=== PATIENT | female | born 1990 | race Native Hawaiian/Other Pacific Islander ===

== ENCOUNTER 2020-11-25 10:46 | Inpatient (IN) | payer MEDICAID, OTHER ==
[2020-11-25] MEDS ORDERED: LACTATED RINGERS 1,000 ML ONE (11:43)
--- NOTE | 2020-11-25 12:10 | History and Physical Report ---
History of Present Illness Date of examination: 11/25/20 Chief complaint: active labor Past History Past Surgical History: no surgical history - Obstetrical History Expected Date of Delivery: 12/06/20 Actual Gestation: 38 Week(s) 3 Day(s) : 4 Para: 2 Medications and Allergies Allergies Allergy/AdvReac Type Severity Reaction Status Date / Time No Known Allergies Allergy Verified 11/25/20 22:13 Home Medications Medication Instructions Recorded Confirmed Last Taken Type Ferrous Sulfate [Iron Supplement] 325 mg PO BID #60 tablet 05/06/14 11/25/20 Unknown Rx Ibuprofen [Motrin 600 MG tab] 600 mg PO Q6H #30 tablet 05/06/14 11/25/20 Unknown Rx oxyCODONE /ACETAMINOPHEN [Percocet 2 tab PO Q4H PRN #30 tablet 05/06/14 11/25/20 Unknown Rx 5/325 mg] - Vital Signs Vital signs: Vital Signs Pulse Pulse Ox 67 100 11/25/20 11:29 11/25/20 11:29 Temp Pulse Resp BP Pulse Ox 65 106/66 99 11/25/20 12:04 11/25/20 11:48 11/25/20 12:04 - Physical Exam Breasts: Positive: deferred Cardiovascular: Regular rate Abdomen: Positive: normal appearance, soft Genitourinary (Female): Positive: normal external genitalia Uterus: Positive: enlarged (FH 38cm) Deep Tendon Reflex Grade: Normal +2 - Obstetrical FHR: category 1 Results Result Diagrams: 11/25/20 14:49 All other labs normal. Assessment and Plan admission CFM pain meds prn gbs neg anticipate Renetta Swanson MD
[2020-11-25 12:40] LABS: Hematocrit 31.8 % (30.3-42.9); Hemoglobin 10.2 gm/dl (10.1-14.3); Mean Corpuscular HGB Conc 32 % (30-34); Mean Corpuscular Volume 72 fl (79-97); Platelet Count 289 K/mm3 (140-440); Red Blood Count 4.44 M/mm3 (3.65-5.03); Red Cell Distribution Width 18.8 % (13.2-15.2)
[2020-11-25] MEDS ORDERED: OXYTOCIN 10 UNIT/1 ML INJ IM PRN (12:42)
[2020-11-25] MEDS ORDERED: ePHEDrine SULFATE 50 MG/1 ML INJ IV PRN (12:42)
[2020-11-25] MEDS ORDERED: METHYLERGONOVINE MALEATE 0.2 MG/ML VIAL IM PRN (12:42)
[2020-11-25] MEDS ORDERED: fentaNYL 100 MCG/2 ML INJ IV PRN (12:42)
[2020-11-25] MEDS ORDERED: TERBUTALINE 1 MG/1 ML INJ SUB-Q PRN (12:42)
[2020-11-25] MEDS ORDERED: LOPERAMIDE 2 MG CAP PO PRN (12:42)
[2020-11-25] MEDS ORDERED: MINERAL OIL 30 ML ORAL LIQD PO PRN (12:42)
[2020-11-25] MEDS ORDERED: LIDOCAINE (2%) 20 MG/1 ML VIAL 20 ML MDV INFILTRATI ONE (12:42)
[2020-11-25] MEDS ORDERED: CARBOPROST TROMETHAMINE 250 MCG/1 ML INJ IM PRN (12:42)
[2020-11-25] MEDS ORDERED: BUTORPHANOL 2 MG/1 ML INJ IV PRN (12:42)
[2020-11-25] MEDS ORDERED: ACETAMINOPHEN 325 MG TAB PO PRN ×2 (12:42→18:24)
[2020-11-25] MEDS ORDERED: miSOPROStol 200 MCG TAB PR PRN (12:42)
[2020-11-25] MEDS ORDERED: LACTATED RINGERS 1,000 ML IV SCH (12:45)
[2020-11-25] MEDS ORDERED: OXYTOCIN DRIP 30 UNITS/500 ML BAG IV SCH ×2 (13:00)
[2020-11-25 15:14] LABS: Hematocrit 28.7 % (30.3-42.9); Mean Corpuscular HGB Conc 31 % (30-34); Mean Corpuscular Volume 71 fl (79-97); Platelet Count 285 K/mm3 (140-440); Red Blood Count 4.08 M/mm3 (3.65-5.03); Red Cell Distribution Width 18.5 % (13.2-15.2)
--- NOTE | 2020-11-25 16:38 | Progress Note ---
Subjective - Subjective Date of service: 11/25/20 Interval history: SROM clear fluid cervix 9cm/100/-1 FHT Category 1 expect Renetta Swanson MD Objective - Vital Signs Vital Signs: Vital Signs - 12hr 11/25/20 11/25/20 11/25/20 11:29 11:34 11:39 Temperature Pulse Rate 67 68 72 Respiratory Rate Blood Pressure Blood Pressure [Left] O2 Sat by Pulse 100 99 99 Oximetry O2 Sat by Pulse Oximetry [ Bilateral] 11/25/20 11/25/20 11/25/20 11:44 11:48 11:49 Temperature Pulse Rate 62 65 67 Respiratory Rate Blood Pressure 106/66 Blood Pressure [Left] O2 Sat by Pulse 99 99 Oximetry O2 Sat by Pulse Oximetry [ Bilateral] 11/25/20 11/25/20 11/25/20 11:54 11:59 12:04 Temperature Pulse Rate 58 L 72 65 Respiratory Rate Blood Pressure Blood Pressure [Left] O2 Sat by Pulse 100 100 99 Oximetry O2 Sat by Pulse Oximetry [ Bilateral] 11/25/20 11/25/20 11/25/20 12:09 12:14 12:19 Temperature 98.3 F Pulse Rate 60 60 67 Respiratory 20 Rate Blood Pressure Blood Pressure 106/66 [Left] O2 Sat by Pulse 99 99 99 Oximetry O2 Sat by Pulse Oximetry [ Bilateral] 11/25/20 11/25/20 11/25/20 12:49 13:06 13:08 Temperature Pulse Rate 65 49 L Respiratory Rate Blood Pressure 99/57 Blood Pressure [Left] O2 Sat by Pulse 100 Oximetry O2 Sat by Pulse 99 Oximetry [ Bilateral] 11/25/20 11/25/20 11/25/20 13:11 13:16 13:21 Temperature Pulse Rate 62 51 L 62 Respiratory Rate Blood Pressure Blood Pressure [Left] O2 Sat by Pulse 100 100 100 Oximetry O2 Sat by Pulse Oximetry [ Bilateral] 11/25/20 11/25/20 11/25/20 13:26 13:31 13:36 Temperature Pulse Rate 57 L 62 69 Respiratory Rate Blood Pressure Blood Pressure [Left] O2 Sat by Pulse 98 100 100 Oximetry O2 Sat by Pulse Oximetry [ Bilateral] 11/25/20 11/25/20 11/25/20 13:41 13:46 13:51 Temperature Pulse Rate 59 L 51 L 76 Respiratory Rate Blood Pressure Blood Pressure [Left] O2 Sat by Pulse 99 100 100 Oximetry O2 Sat by Pulse Oximetry [ Bilateral] 11/25/20 11/25/20 11/25/20 13:56 14:01 14:06 Temperature Pulse Rate 65 59 L 55 L Respiratory Rate Blood Pressure Blood Pressure [Left] O2 Sat by Pulse 99 99 99 Oximetry O2 Sat by Pulse Oximetry [ Bilateral] 11/25/20 11/25/20 11/25/20 14:11 14:16 14:21 Temperature Pulse Rate 80 64 68 Respiratory Rate Blood Pressure Blood Pressure [Left] O2 Sat by Pulse 100 99 100 Oximetry O2 Sat by Pulse Oximetry [ Bilateral] 11/25/20 11/25/20 11/25/20 14:26 14:31 14:36 Temperature Pulse Rate 72 67 79 Respiratory Rate Blood Pressure Blood Pressure [Left] O2 Sat by Pulse 100 99 98 Oximetry O2 Sat by Pulse Oximetry [ Bilateral] 11/25/20 11/25/20 11/25/20 14:41 14:46 14:51 Temperature Pulse Rate 58 L 76 58 L Respiratory Rate Blood Pressure Blood Pressure [Left] O2 Sat by Pulse 100 100 99 Oximetry O2 Sat by Pulse Oximetry [ Bilateral] 11/25/20 11/25/20 11/25/20 14:56 15:01 15:06 Temperature Pulse Rate 52 L 73 53 L Respiratory Rate Blood Pressure Blood Pressure [Left] O2 Sat by Pulse 100 100 100 Oximetry O2 Sat by Pulse Oximetry [ Bilateral] 11/25/20 11/25/20 11/25/20 15:11 15:15 15:20 Temperature Pulse Rate 73 61 63 Respiratory Rate Blood Pressure Blood Pressure [Left] O2 Sat by Pulse 99 99 100 Oximetry O2 Sat by Pulse Oximetry [ Bilateral] 11/25/20 11/25/20 11/25/20 15:25 15:30 15:35 Temperature Pulse Rate 66 69 69 Respiratory Rate Blood Pressure Blood Pressure [Left] O2 Sat by Pulse 99 96 99 Oximetry O2 Sat by Pulse Oximetry [ Bilateral] 11/25/20 11/25/20 15:50 16:37 Temperature 97.9 F Pulse Rate 57 L Respiratory 16 Rate Blood Pressure 105/56 Blood Pressure [Left] O2 Sat by Pulse Oximetry O2 Sat by Pulse Oximetry [ Bilateral] - Labs Labs: Abnormal Labs 11/25/20 11/25/20 12:00 14:49 Hgb 9.0 L Hct 28.7 L MCV 72 L 71 L MCH 23 L 22 L RDW 18.8 H 18.5 H Laboratory Results - last 24 hr 11/25/20 11/25/20 11/25/20 12:00 12:00 12:00 WBC 10.4 RBC 4.44 Hgb 10.2 Hct 31.8 MCV 72 L MCH 23 L MCHC 32 RDW 18.8 H Plt Count 289 Syphilis IgG Antibody Nonreactive Blood Type O POSITIVE Antibody Screen Negative 11/25/20 14:49 WBC 10.9 RBC 4.08 Hgb 9.0 L Hct 28.7 L MCV 71 L MCH 22 L MCHC 31 RDW 18.5 H Plt Count 285 Syphilis IgG Antibody Blood Type Antibody Screen
--- NOTE | 2020-11-25 17:32 | Procedure Note ---
OB Delivery Note - Delivery Date of Delivery: 11/25/20 Surgeon: ROCK MONTALVO Estimated blood loss: 200cc - Vaginal Delivery position: OP Intrapartum events: none Delivery induction: none Delivery augmentation: rupture of membranes Delivery monitor: none Route of delivery: Delivery placenta: spontaneous Delivery cord: 3 umbilical vessels Episiotomy: none Delivery laceration: 1st degree Delivery repair: vicryl Anesthesia: none Delivery comments: Patient pushed to deliver a viable male over an intact perineum with weight 3111gma and 9/9. Position direct OP, no nuchal cord. Spontaneous cry at delivery. Delivery of the anterior shoulder atraumatic, remainder of delivery uncomplicated. Cord clamped cut and baby handed to waiting [facility] team. Spontaneous delivery of an intact placenta with three-vessel cord. Inspection of the perineum cervix and vagina revealeda first degree perineal laceration which was repaired with vicryl in the usual fashion. Firm fundus, EBL 200ml. All sponge needle and instrument counts correct x2. Mom and baby stable to . Renetta Montalvo MD
[2020-11-25] MEDS ORDERED: PROMETHAZINE 25 MG TAB PO PRN (18:24)
[2020-11-25] MEDS ORDERED: MAGNESIUM HYDROXIDE (MOM) ORAL LIQD UDC PO PRN (18:24)
[2020-11-25] MEDS ORDERED: ONDANSETRON 4 MG/2 ML INJ IV PRN (18:24)
[2020-11-25] MEDS ORDERED: HYDROcodone/ACETAMINOPHEN 5-325 MG TAB PO PRN (18:24)
[2020-11-25] MEDS ORDERED: diphenhydrAMINE 25 MG CAP PO PRN (18:24)
[2020-11-25] MEDS ORDERED: LANOLIN/ZINC/DIMETHICONE (LANSINOH) 7 GM TP PRN (18:24)
[2020-11-25] MEDS ORDERED: PROMETHAZINE 25 MG RECT SUPP PR PRN (18:24)
[2020-11-25] MEDS ORDERED: WITCH HAZEL/ GLYCERIN PAD TP PRN (18:24)
[2020-11-25] MEDS ORDERED: IBUPROFEN 600 MG TAB PO SCH (19:00)
[2020-11-26] MEDS: IBUPROFEN ORAL LIQD 100 MG/5 ML ORAL.LIQD PO SCH ×4 (05:58→23:08)
[2020-11-26 07:47] LABS: Hematocrit 27.7 % (30.3-42.9); Hemoglobin 8.7 gm/dl (10.1-14.3)
--- NOTE | 2020-11-26 09:38 | Progress Note ---
Subjective - Subjective Date of service: 11/26/20 Interval history: no complaints doing well continue routine PP Care d/c to home in AM Renetta Swanson MD Patient reports: appetite normal, voiding normally, pain well controlled, ambulating normally : doing well Objective - Vital Signs Latest vital signs: Vital Signs Temp Pulse Resp BP BP Pulse Ox Pulse Ox 11/26/20 08:35 99 11/26/20 08:05 97.8 F 67 20 93/43 99 11/26/20 06:58 18 11/26/20 05:58 18 11/26/20 04:34 97.8 F 73 18 90/53 99 11/26/20 02:00 18 11/26/20 01:00 20 11/26/20 00:56 97.8 F 93 H 20 98/55 98 11/25/20 20:22 98.7 F 72 20 96/46 98 98 11/25/20 18:45 78 95/52 11/25/20 18:30 59 L 94/53 11/25/20 18:18 89 98 11/25/20 18:15 64 101/55 11/25/20 18:13 61 99 11/25/20 18:08 59 L 100 11/25/20 18:03 51 L 99 11/25/20 18:00 67 99/54 11/25/20 17:58 72 98 11/25/20 17:53 80 98 11/25/20 17:48 61 97 11/25/20 17:45 53 L 107/51 11/25/20 17:43 53 L 100 11/25/20 17:38 59 L 99 11/25/20 17:33 65 99 11/25/20 17:30 61 94/59 11/25/20 17:28 80 99 11/25/20 17:23 66 100 11/25/20 17:17 67 107/55 11/25/20 16:37 57 L 105/56 11/25/20 15:50 97.9 F 16 11/25/20 15:35 69 99 11/25/20 15:30 69 96 11/25/20 15:25 66 99 11/25/20 15:20 63 100 11/25/20 15:15 61 99 11/25/20 15:11 73 99 11/25/20 15:06 53 L 100 11/25/20 15:01 73 100 11/25/20 14:56 52 L 100 11/25/20 14:51 58 L 99 11/25/20 14:46 76 100 11/25/20 14:41 58 L 100 11/25/20 14:36 79 98 11/25/20 14:31 67 99 11/25/20 14:26 72 100 11/25/20 14:21 68 100 11/25/20 14:16 64 99 11/25/20 14:11 80 100 11/25/20 14:06 55 L 99 11/25/20 14:01 59 L 99 11/25/20 13:56 65 99 11/25/20 13:51 76 100 11/25/20 13:46 51 L 100 11/25/20 13:41 59 L 99 11/25/20 13:36 69 100 11/25/20 13:31 62 100 11/25/20 13:26 57 L 98 11/25/20 13:21 62 100 11/25/20 13:16 51 L 100 11/25/20 13:11 62 100 11/25/20 13:08 49 L 99/57 11/25/20 13:06 65 100 11/25/20 12:49 99 11/25/20 12:19 67 99 11/25/20 12:14 60 99 11/25/20 12:09 98.3 F 60 20 106/66 99 11/25/20 12:04 65 99 11/25/20 11:59 72 100 11/25/20 11:54 58 L 100 11/25/20 11:49 67 99 11/25/20 11:48 65 106/66 11/25/20 11:44 62 99 11/25/20 11:39 72 99 11/25/20 11:34 68 99 11/25/20 11:29 67 100 Intake and Output 11/25/20 11/26/20 11/26/20 23:59 07:59 15:59 Intake Total 840 Output Total 900 Balance -60 Intake: Oral 360 Intake, Free Water 480 Output: Urine 900 Void 900 Other: Total, Intake Amount 360 Total, Output Amount 900 # Voids Void 1 Estimated Blood Loss 200 - Labs Labs: Abnormal lab results 11/25/20 11/25/20 11/26/20 Range/Units 12:00 14:49 07:01 Hgb 9.0 L 8.7 L (10.1-14.3) gm/dl Hct 28.7 L 27.7 L (30.3-42.9) % MCV 72 L 71 L (79-97) fl MCH 23 L 22 L (28-32) pg RDW 18.8 H 18.5 H (13.2-15.2) %
--- NOTE | 2020-11-26 15:00 | Discharge Summary ---
Providers - Providers Date of Admission: 11/25/20 12:42 Date of discharge: 11/27/20 Attending physician: ROCK MONTALVO MD Primary care physician: ROCK MONTALVO MD Hospitalization Delivery: Laceration: 1st degree Discharge diagnosis: IUP at term delivered Condition at discharge: Stable Disposition: DC-01 TO HOME OR SELFCARE Plan - Provider Discharge Summary Activity: no sex for 6 weeks Diet: routine Additional instructions: [] Smoking cessation referral if applicable(refer to patient education folder for contact #) [] Refer to [facility] Book[facility] Call your doctor immediately for: * Fever > 100.5 * Heavy vaginal bleeding ( >1 pad per hour) * Severe persistent headache * Shortness of breath * Reddened, hot, painful area to leg or breast * Drainage or odor from incision. * Keep incision clean and dry at all times and follow doctor's instructions regarding bathing/showering - Follow up plan Follow up: ROCK MONTALVO MD [Primary Care Provider] - 7 Days
[2020-11-27] MEDS: IBUPROFEN ORAL LIQD 100 MG/5 ML ORAL.LIQD PO SCH ×2 (07:10→12:57)
[2020-11-27 16:49] VITALS: BP 103/52
== END 2020-11-27 15:05 | disposition home or self-care (01) | DRG 775 ==
LOC: TRG 10:46 → APU 10:47 → LD 12:42 → TRG 12:42 → LD 14:44 → OB 20:47
PROVIDERS: ADMIT Obstetrics & Gynecology; ATTEND Obstetrics & Gynecology
PROC: 10E0XZZ Delivery of Products of Conception, External Approach (ICD-10-PCS; principal; 2020-11-25)
PROC: 0HQ9XZZ Repair Perineum Skin, External Approach (ICD-10-PCS; 2020-11-25)
DX: O70.0 First degree perineal laceration during delivery (principal); Z3A.38 38 weeks gestation of pregnancy; Z37.0 Single live birth; Z20.822 Contact with and (suspected) exposure to COVID-19
CPT/HCPCS: 36415; 85014; 85018; 85027; 86592; 86850; 86900; 86901; G0378; A6250; J7120; U0003